=== PATIENT | male | born 1960 | race African-American/Black ===

== ENCOUNTER 2016-08-07 23:24 | Inpatient (IN) | payer OTHER ==
[~2016-08-07] VITALS: Ht 193 cm; Wt 175.3 kg
[~2016-08-07 23:24] MED LIST: 1-ME1LIQ PO; ALBU8I INH; ATOR40TA PO; BACT800T5 PO; CARV25TA PO; CHLO25TA24 PO; CO Q100C9 PO; GUAN2TAB PO; LEVO50IN PO; NITR0.4S SL; RANI150T PO; SM A81CH PO
[2016-08-07] MEDS ORDERED: SODIUM CHLORIDE 0.9% FLUSH 5 ML FLUSH IVF PRN (23:30)
[2016-08-07] MEDS ORDERED: MORPHINE SULFATE 4 MG/ML INJ IV PUSH ONE (23:30)
[2016-08-07] MEDS: METOPROLOL TARTRATE 5 MG/5 ML VIAL IVS SCH ×3 (23:30→23:40)
[2016-08-07] MEDS ORDERED: ONDANSETRON HCL 4 MG/2 ML VIAL ONE (23:34)
[2016-08-07 23:36] VITALS: BP 125/78; PULSE 62; RESP 25; TEMP 98.3; O2SAT 95
[2016-08-07 23:40] VITALS: BP 111/60; PULSE 57; RESP 18; O2SAT 95; O2SAT 96
[2016-08-07] MEDS: NITROGLYCERIN 0.4 MG SL 25 TABS/BTL SL SCH ×2 (23:40→23:49)
--- NOTE | 2016-08-07 23:59 | RADRPT ---
EXAM DATE/TIME: 08/07/2016 21:54 [place] COMPARISON: No previous studies available for comparison. INDICATIONS : Shortness of breath. MEDICAL HISTORY : None. SURGICAL HISTORY : None. ENCOUNTER: Initial ACUITY: 1 day PAIN SCORE: 0/10 LOCATION: Bilateral chest FINDINGS: Cardiomegaly. Clear lungs. Osseous structures are intact. CONCLUSION: No acute disease. Daron Coulter MD on August 07, 2016 at 23:57 Board Certified Radiologist. This report was verified electronically.
[2016-08-08] VITALS (15 sets, daily range): BP systolic 113–141; BP diastolic 51–81; PULSE 50–70; RESP 16–26; TEMP 97.2–97.7; O2SAT 93–100
[2016-08-08] MEDS ORDERED: ONDANSETRON HCL 4 MG/2 ML VIAL IV PUSH ONE
[2016-08-08 00:01] LABS: AUTOMATED NEUTROPHIL # 6.4 TH/MM3 (1.8-7.7); BASOPHIL % 0.1 % (0.0-2.0); EOSINOPHIL # 0.2 TH/MM3 (0-0.4); EOSINOPHIL % 2.8 % (0.0-4.0); HEMATOCRIT 33.1 % (39.0-51.0); HEMO FLAGS DIFF FINAL; LYMPH % 10.6 % (9.0-44.0); LYMPHOCYTE # 0.8 TH/MM3 (1.0-4.8); MEAN CELL VOLUME 90.8 FL (80.0-100.0); MEAN CORPUSCULAR HEMOGLOBIN 30.9 PG (27.0-34.0); MONO % 4.8 % (0.0-8.0); NEUT % 81.7 % (16.0-70.0); PLATELET COUNT 178 TH/MM3 (150-450); RED BLOOD COUNT 3.64 MIL/MM3 (4.50-5.90); RED CELL DISTRIBUTION WIDTH 15.6 % (11.6-17.2); WHITE BLOOD COUNT 7.9 TH/MM3 (4.0-11.0)
[2016-08-08] MEDS: NITROGLYCERIN 0.4 MG SL 25 TABS/BTL SL SCH (00:09)
[2016-08-08 00:12] LABS: APTT (PATIENT) 24.5 SEC (24.3-30.1); PROTHROMBIN TIME - PATIENT 10.8 SEC (9.8-11.6)
[2016-08-08] MEDS ORDERED: PROMETHAZINE INJ 25 MG/ML VIAL IM ONE (00:15)
[2016-08-08 00:20] LABS: ALT (GPT) 64 U/L (12-78); ANION GAP 10 MEQ/L (5-15); AST (GOT) 32 U/L (15-37); BICARBONATE 22.5 MEQ/L (21.0-32.0); BLOOD UREA NITROGEN 37 MG/DL (7-18); CHLORIDE 109 MEQ/L (98-107); GLOMERULAR FILTRATION RATE 32 ML/MIN (>89); MAGNESIUM 2.1 MG/DL (1.5-2.5); POTASSIUM 4.1 MEQ/L (3.5-5.1); SODIUM (NA) 141 MEQ/L (136-145)
[2016-08-08 00:24] LABS: ALKALINE PHOSPHATASE 71 U/L (45-117); CREATINE KINASE 307 U/L (39-308); TOTAL BILIRUBIN ADULT 0.2 MG/DL (0.2-1.0)
[2016-08-08 00:36] LABS: CKMB 1.4 NG/ML (0.5-3.6)
[2016-08-08] MEDS ORDERED: HYDROmorphone HCL PF 1 MG/ML VIAL IV PUSH ONE (01:00)
[2016-08-08] MEDS ORDERED: SODIUM CHLORIDE 0.9% FLUSH 5 ML FLUSH FLUSH PRN (01:15)
[2016-08-08] MEDS ORDERED: NALOXONE HCL 0.4 MG/ML AMP IV PRN (01:15)
--- NOTE | 2016-08-08 01:39 | PD ---
HPI Chief Complaint: Chest Pain Time Seen by Provider: 23:26 Travel History International Travel<30 days: No Contact w/Intl Traveler<30days: No Traveled to known affect area: No History of Present Illness HPI 55-year-old male arrives complaining of lightheaded dizziness along with nausea. He dry heaved once. He said no fever. He reports shortness of breath. Orthopnea is reported. Dyspnea on exertion is reported. He denies chest pain or any variant of chest discomfort. Patient has a history of hypertension chronic kidney disease hypothyroidism smoking and CHF. He reports compliance with all his medications including diuretic however cannot recall the names of any of his meds. His notes that he was diaphoresis prior to arrival. Symptoms started this at rest somewhat suddenly 2 hours ago. He has taken aspirin within the last 7 days. He denies a history of coronary artery disease. He also complains of low back pain and acute on chronic. No recent injury. No change in bowel bladder habits. It's worse from sitting upright on the thin mattress in the ER. PFSH Past Medical History Congestive Heart Failure: Yes Hypertension: Yes Thyroid Disease: Yes (HYPO) Tetanus Vaccination: > 5 Years Influenza Vaccination: No Past Surgical History Surgical History: No Previous Surgery Other Surgery: Yes (CORNEA TRANSPLANT) Social History Alcohol Use: Yes (OCC) Tobacco Use: No Substance Use: No (WEED) Allergies-Medications (Allergen,Severity, Reaction): Coded Allergies: Topiramate (Verified Allergy, Intermediate, Hives, 08/07/16) Uncoded Allergies: phentermine (Allergy, Intermediate, Hives, 03/08/15) Reported Meds & Prescriptions Reported Meds & Active Scripts Active Bactrim DS (Sulfamethoxazole-Trimethoprim DS) 1 Tab Tab 1 Tab PO BID Nitrostat (Nitroglycerin) 0.4 Mg Subl 0.4 Mg SL PRN 1 TAB SL EVERY 5 MINS X 3 PRN CHEST PAIN [place] (Chlorthalidone) 25 Mg Tab 1 Tab PO DAILYAC Carvedilol 25 mg (Carvedilol) 25 Mg Tab 1 Tab PO BID Levothyroxine 200 mcg (Levothyroxine Sodium) 200 Mcg Tab 1 Tab PO DAILY Take 1 hour before food including coffee Ranitidine 150 mg (Ranitidine HCl) 150 Mg Tab 1 Tab PO DAILY Amlodipine Besylate 10 mg (Amlodipine Besylate) 10 Mg Tab 1 Tab PO DAILY Ventolin Hfa (Albuterol Sulfate) 8 Gm Aero 1 Puff INH QID dispense generic salbutemol Co Q 10 (Coenzyme Q10) 100 Mg Cap 1 Cap PO DAILY take with food Atorvastatin 40 mg (Atorvastatin Calcium) 40 Mg Tab 1 Tab PO DAILY Reported Guanfacine Hcl (Guanfacine HCl) 2 Mg Tab 2 Mg PO HS Aspirin 81 Mg Tab 81 Mg PO DAILY Review of Systems Except as stated in HPI: all other systems reviewed are Neg Physical Exam Narrative GENERAL: 55-year-old male pleasant, no acute distress, BMI 47 SKIN: Warm and dry. HEAD: Atraumatic. Normocephalic. EYES: Pupils equal and round. No scleral icterus. No injection or drainage. ENT: No nasal bleeding or discharge. Mucous membranes pink and moist. NECK: Trachea midline. No JVD. CARDIOVASCULAR: Regular rate and rhythm. No murmur appreciated. RESPIRATORY: No accessory muscle use. Clear to auscultation. Breath sounds equal bilaterally. GASTROINTESTINAL: Abdomen soft, non-tender, nondistended. Hepatic and splenic margins not palpable. MUSCULOSKELETAL: No obvious deformities. No clubbing. No cyanosis. No edema. NEUROLOGICAL: Awake and alert. No obvious cranial nerve deficits. Motor grossly within normal limits. Normal speech. PSYCHIATRIC: Appropriate mood and affect; insight and judgment normal. Data Data Last Documented VS Vital Signs Date Time Temp Pulse Resp B/P Pulse Ox O2 Delivery O2 Flow Rate FiO2 08/08/16 00:09 50 18 115/63 93 Nasal Cannula 6 08/07/16 23:36 98.3 Orders Electrocardiogram (08/07/16 23:26) B-Type Natriuretic Peptide (08/07/16 23:26) Ckmb (Isoenzyme) Profile (08/07/16 23:26) Complete Blood Count With Diff (08/07/16 23:26) Comprehensive Metabolic Panel (08/07/16 23:26) Magnesium (Mg) (08/07/16 23:26) Prothrombin Time / Inr (Pt) (08/07/16 23:26) Act Partial Throm Time (Ptt) (08/07/16 23:26) Troponin I (08/07/16 23:26) Lipase (08/07/16 23:26) Chest, Single Ap (08/07/16 23:26) Ecg Monitoring (08/07/16 23:26) Bilateral Bp Monitoring (08/07/16 23:26) Iv Access Insert/Monitor (08/07/16 23:26) Oximetry (08/07/16 23:26) Oxygen Administration (08/07/16 23:26) Morphine Inj (Morphine Inj) (08/07/16 23:30) Sodium Chloride 0.9% Flush (Ns Flush) (08/07/16 23:30) Nitroglycerin Sl (Nitrostat Sl) (08/07/16 23:30) Metoprolol Tartrate Inj (Lopressor Inj) (08/07/16 23:30) Ondansetron Inj (Zofran Inj) (08/07/16 23:34) Ondansetron Inj (Zofran Inj) (08/08/16 00:00) Promethazine Inj (Phenergan Inj) (08/08/16 00:15) CKMB (08/07/16 23:30) CKMB% (08/07/16 23:30) Admit Order (Ed Use Only) (08/08/16 00:53) Labs Laboratory Tests Test 08/07/16 23:30 White Blood Count 7.9 TH/MM3 Red Blood Count 3.64 MIL/MM3 Hemoglobin 11.2 GM/DL Hematocrit 33.1 % Mean Corpuscular Volume 90.8 FL Mean Corpuscular Hemoglobin 30.9 PG Mean Corpuscular Hemoglobin 34.0 % Concent Red Cell Distribution Width 15.6 % Platelet Count 178 TH/MM3 Mean Platelet Volume 10.4 FL Neutrophils (%) (Auto) 81.7 % Lymphocytes (%) (Auto) 10.6 % Monocytes (%) (Auto) 4.8 % Eosinophils (%) (Auto) 2.8 % Basophils (%) (Auto) 0.1 % Neutrophils # (Auto) 6.4 TH/MM3 Lymphocytes # (Auto) 0.8 TH/MM3 Monocytes # (Auto) 0.4 TH/MM3 Eosinophils # (Auto) 0.2 TH/MM3 Basophils # (Auto) 0.0 TH/MM3 CBC Comment DIFF FINAL Differential Comment Prothrombin Time 10.8 SEC Prothromb Time International 1.0 RATIO Ratio Activated Partial 24.5 SEC Thromboplast Time Sodium Level 141 MEQ/L Potassium Level 4.1 MEQ/L Chloride Level 109 MEQ/L Carbon Dioxide Level 22.5 MEQ/L Anion Gap 10 MEQ/L Blood Urea Nitrogen 37 MG/DL Creatinine 2.55 MG/DL Estimat Glomerular Filtration 32 ML/MIN Rate Random Glucose 128 MG/DL Calcium Level 8.4 MG/DL Magnesium Level 2.1 MG/DL Total Bilirubin 0.2 MG/DL Aspartate Amino Transf 32 U/L (AST/SGOT) Alanine Aminotransferase 64 U/L (ALT/SGPT) Alkaline Phosphatase 71 U/L Total Creatine Kinase 307 U/L Creatine Kinase MB 1.4 NG/ML Troponin I 0.15 NG/ML B-Type Natriuretic Peptide 67 PG/ML Total Protein 7.7 GM/DL Albumin 3.4 GM/DL Lipase 97 U/L MDM Medical Decision Making Medical Screen Exam Complete: Yes Emergency Medical Condition: Yes Medical Record Reviewed: Yes Differential Diagnosis NSTEMI, unstable angina, coronary vasospasm, PE, PTX, aortic dissection, pericarditis, myocarditis, endocarditis, PNA, esophageal disease, aneurysm, musculoskeletal etiologies, anxiety, cocaine/sympathomimetic abuse Narrative Course EKG demonstrates a sinus rhythm with a moderate T-wave changes in the precordial leads and T-wave inversions in the inferior leads of indeterminate etiology however ischemic injury pattern is considered, similar morphology has been loaded to the EMR Last 24 hours Impressions Chest X-Ray 08/07/16 2308 Signed Impressions: Service Date/Time: Sunday, August 07, 2016 21:54 - CONCLUSION: No acute disease. Daron Coulter MD CBC & BMP Diagram 08/07/16 23:30 Tn 0.15 LFTs normal BNP 67 Lipase 97 INR 1.0 Patient will be admitted for serial enzymes. He has complained of nausea and dizziness throughout ER stay. His blood pressure has dipped to about 95 systolic. Upon reassessment just prior to admission the patient's only complaint is acute or chronic low back pain. The patient has received Phenergan for persistent nausea. We'll provide additional pain medication. We' ll provide the patient with a hospital bed as it seems his low back pain is simply from sitting upright with his 375 pound frame on the thin mattress. Case discussed with Dr Ng. Diagnosis Primary Impression: Restrictive lung disease Additional Impressions: Low back pain Qualified Code: M54.5 - Chronic midline low back pain without sciatica BMI 45.0-49.9, adult Dyspnea on exertion Elevated troponin I level CKD (chronic kidney disease) Qualified Code: N18.3 - CKD (chronic kidney disease), stage 3 (moderate) Admitting Information Admitting Physician Requests: Austen Grace MD Aug 08, 2016 01:39
[2016-08-08] MEDS ORDERED: RANI150T PO (02:41)
[2016-08-08] MEDS ORDERED: LEVO200T4 PO (02:41)
[2016-08-08] MEDS ORDERED: CARV25TA PO (02:41)
[2016-08-08] MEDS ORDERED: VENTAER INH (02:41)
[2016-08-08] MEDS ORDERED: ASPI81CH CHEW (02:41)
[2016-08-08] MEDS ORDERED: LIPI40TA PO (02:41)
[2016-08-08] MEDS: SODIUM CHLORIDE 0.9% FLUSH 5 ML FLUSH FLUSH SCH ×2 (09:04→21:07)
[2016-08-08] MEDS ORDERED: MORPHINE SULFATE 4 MG/ML INJ IV PRN (11:15)
[2016-08-08] MEDS ORDERED: NITROGLYCERIN 0.4 MG SL 25 TABS/BTL SL PRN (11:15)
[2016-08-08] MEDS ORDERED: ACETAMINOPHEN 500 MG CPLT PO PRN (11:15)
[2016-08-08] MEDS ORDERED: ONDANSETRON HCL 4 MG/2 ML VIAL IV PUSH PRN (11:15)
[2016-08-08] MEDS ORDERED: ALPRAZolam 0.25 MG TAB PO PRN (11:15)
[2016-08-08] MEDS ORDERED: ASPIRIN EC 325 MG TABEC PO ONE (11:15)
[2016-08-08] MEDS ORDERED: ACETAMINOPHEN/HYDROcodone 325 MG/7.5 MG TAB PO PRN (11:15)
--- NOTE | 2016-08-08 12:39 | HHI.HP ---
HPI Service [facility] Hospitalists Primary Care Physician Non-Staff Admission Diagnosis Tn 0.15, Dizziness, Acute on Chronic Low Back Pain, N/V Chief Complaint: Chest pain Travel History International Travel<30 Days: No Contact w/Intl Traveler <30 Da: No Traveled to Known Affected Are: No History of Present Illness Mr. Adame is a pleasant 55 y/o AAM with HTN, hyperlipidemia, untreated DARINEL, grade 2 diastolic dysfunction, tobacco use, morbid obesity and CKD. Pt states that yesterday evening he started having dizziness, chest pain, worsening SOB from baseline diaphoresis and nausea. He states that he has had similar symptoms in the past but this seemed to be worse. 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 His brought him to the ER for further evaluation. He states that he was given Nitro and Morphine in the ER and did have some relief of the dizziness and chest discomfort. Pt reports that the dizziness and nausea has improved. Denies any fevers/chills, abdominal pain, palpitations, headache or weakness. He did complain of fatigue when he was having symptoms. Pt reports chronic shortness of breath with exertion and orthopnea. Dyspnea on exertion is reported. He denies chest pain or any variant of chest discomfort. Patient has a history of hypertensive chronic kidney disease and previously followed with a organizational development specialist but hasn't been seen in a while. Outpt labs from March 2016 noted Cr 1.84. He also was recently started on Chlorthalidone. He reports compliance with all his medications including. He denies a history of coronary artery disease. Pt states that his last cardiac cath was around 2011 and was negative per the pt. He was seen by Dr. Ybarra in 05/2016 and had a Lexiscan performed which indicated some possible ischemia but difficult to interpret due to body habitus. He was also noted to have grade 2 diastolic dysfunction on 2D echo but stable EF at 55-60%. He also complains of low back pain which is a chronic issue. No change in bowel bladder habits. Review of Systems Constitutional: COMPLAINS OF: Dizziness, DENIES: Fever, Chills Eyes: DENIES: Vision loss Ears, nose, mouth, throat: DENIES: Hearing loss Respiratory: COMPLAINS OF: Apneas, Shortness of breath, DENIES: Cough Cardiovascular: COMPLAINS OF: Chest pain, Dyspnea on Exertion Gastrointestinal: COMPLAINS OF: Nausea, DENIES: Abdominal pain, Constipation, Diarrhea, Vomiting Genitourinary: DENIES: Dysuria, Nocturia Musculoskeletal: COMPLAINS OF: Back pain (chronic) Integumentary: DENIES: Rash Hematologic/lymphatic: DENIES: Bruising Neurologic: DENIES: Headache, Localized weakness Psychiatric: DENIES: Confusion Past Family Social History Past Medical History HTN Hyperlipidemia Morbid Obesity DARINEL, not on CPAP Hypertensive CKD Grade 2 diastolic dysfunction GERD Hypothyroidism 2D echo (05/15/16) - LV mildly dilated and mild LVH - EF 55-60% - Grade 2 diastolic dysfunction - LA mildly dilated - Mild mitral regurg - Mild aortic regurg - Mild tricuspid regurg - Estimated PA peak pressure 35mmHg Past Surgical History Corneal transplant Arthroscopic knee surgery Reported Medications Chlorthalidone 25 Mg PO DAILY Ventolin Hfa 18 GM Inh 90 Mcg/Act Aer 1 Puff INH Q4H PRN Lipitor 40 Mg PO HS Aspirin 81 Mg CHEW DAILY Carvedilol 25 Mg PO BID Levothyroxine 200 Mcg PO DAILY Ranitidine 150 Mg PO DAILY Allergies: Coded Allergies: Topiramate (Verified Allergy, Intermediate, Hives, 08/07/16) Uncoded Allergies: phentermine (Allergy, Intermediate, Hives, 03/08/15) Family History Noncontributory Social History (+)Tobacco use, 3-4 cigarettes per week for the last 30+ years Denies any regular alcohol use Hx of marijuana use, none for the last 4 months. Physical Exam Vital Signs Vital Signs Date Time Temp Pulse Resp B/P Pulse Ox O2 Delivery O2 Flow Rate FiO2 08/08/16 12:00 59 18 129/58 94 Room Air 21 08/08/16 11:29 100 21 08/08/16 11:00 66 20 141/66 96 Nasal Cannula 4 08/08/16 10:00 66 18 141/66 99 Nasal Cannula 4 08/08/16 09:00 66 17 114/60 95 Nasal Cannula 4 08/08/16 08:00 64 16 117/51 96 Nasal Cannula 4 08/08/16 07:30 Nasal Cannula 08/08/16 07:00 64 18 113/64 96 Nasal Cannula 4 08/08/16 06:00 64 18 136/64 96 Nasal Cannula 4 08/08/16 00:09 50 18 115/63 93 Nasal Cannula 6 08/07/16 23:40 57 18 111/60 95 Nasal Cannula 6 08/07/16 23:40 59 25 95 Nasal Cannula 2 08/07/16 23:40 18 96 Nasal Cannula 6 08/07/16 23:40 93 Nasal Cannula 6 08/07/16 23:36 98.3 62 25 125/78 95 Physical Exam GENERAL: Morbidly obese male in no apparent distress. SKIN: Blisters noted on the LE bilaterally HEENT: Atraumatic. Normocephalic. No temporal or scalp tenderness. No scleral icterus. Airway patent. NECK: Trachea midline, supple, nontender. CARDIO: Regular. RESP: CTA bilaterally. No wheezes, rales, or rhonchi. ABD: +BS, soft, non-tender, nondistended. EXT: Extremities without clubbing, cyanosis, or edema. NEURO: Awake and alert. Motor and sensory grossly within normal limits. Normal speech. Laboratory Laboratory Tests Test 08/07/16 08/08/16 23:30 04:08 White Blood Count 7.9 Red Blood Count 3.64 Hemoglobin 11.2 Hematocrit 33.1 Mean Corpuscular Volume 90.8 Mean Corpuscular Hemoglobin 30.9 Mean Corpuscular Hemoglobin 34.0 Concent Red Cell Distribution Width 15.6 Platelet Count 178 Mean Platelet Volume 10.4 Neutrophils (%) (Auto) 81.7 Lymphocytes (%) (Auto) 10.6 Monocytes (%) (Auto) 4.8 Eosinophils (%) (Auto) 2.8 Basophils (%) (Auto) 0.1 Neutrophils # (Auto) 6.4 Lymphocytes # (Auto) 0.8 Monocytes # (Auto) 0.4 Eosinophils # (Auto) 0.2 Basophils # (Auto) 0.0 CBC Comment DIFF FINAL Differential Comment Prothrombin Time 10.8 Prothromb Time International 1.0 Ratio Activated Partial 24.5 Thromboplast Time Sodium Level 141 Potassium Level 4.1 Chloride Level 109 Carbon Dioxide Level 22.5 Anion Gap 10 Blood Urea Nitrogen 37 Creatinine 2.55 Estimat Glomerular Filtration 32 Rate Random Glucose 128 Calcium Level 8.4 Magnesium Level 2.1 Total Bilirubin 0.2 Aspartate Amino Transf 32 (AST/SGOT) Alanine Aminotransferase 64 (ALT/SGPT) Alkaline Phosphatase 71 Total Creatine Kinase 307 292 Creatine Kinase MB 1.4 Troponin I 0.15 0.15 B-Type Natriuretic Peptide 67 Total Protein 7.7 Albumin 3.4 Lipase 97 Result Diagram: 08/07/16232908/07/162329 Imaging Last Impressions Chest X-Ray 08/07/162325 Signed Impressions: Service Date/Time: Sunday, August 07, 2016 21:54 - CONCLUSION: No acute disease. Daron Coulter MD Septic Shock Reassessment Heart: Regular rate and rhythm Lungs: Clear Skin: Warm Peripheral Pulses: Bounding Right Radial Bounding Left Radial Bounding Right Popliteal Bounding Left Popliteal Bounding Right Dorsalis Pedis Bounding Left Dorsalis Pedis Bounding Right Posterior Tibial Bounding Left Posterior Tibial Capillary Refill: <2 seconds Assessment and Plan Problem List: (1) Chest pain Status: Acute Plan: - Pt admitted with dizziness, chest pain/pressure, exertional SOB, diaphoresis and nausea - Pt also with significant anxiety which may be playing a role in his symptoms. - He had some relief of his chest pain and pressure with Nitro and Morphine in the ER - Pt was noted to have an elevated but flat troponin of 0.15 and 0.15 but pt also noted to have an elevated creatinine about previous baseline labs. - Repeat CE and EKG are pending. - Pt has significant cardiac risk factors including, HTN, hyperlipidemia, morbid obesity, tobacco use - Pt had previous workup outpt with Lexiscan in 05/2016 which noted to have mild inferior and inferoseptal ischemia but difficult to interpret based on body habitus. - He last 2D echo in 05/2016 as noted above. - Consult Cardiology - Gentle IVF to try to improve renal function in case cardiac cath is necessary - Monitor labs - Resume BB, BP running low so will decrease dose on Coreg for now - Hold Chlorthalidone as may be contributing to increased renal function. - ASA/BB/Statin - Nitro PRN - Morphine PRN - Xanax PRN - DVT prophylaxis with SCDs (2) Acute on chronic renal insufficiency Status: Acute Plan: - Outpt labs from 03/2016 with Cr 1.84 - Hold Chlorthalidone - Gentle IVF - Monitor labs (3) Dyspnea on exertion Status: Acute Plan: - See above. (4) Dizziness Status: Acute Plan: - See above. (5) Benign hypertension Status: Chronic Plan: - Pt with longstanding hx of HTN - Outpt pt is on Coreg 25mg po BID, Chlorthalidone 25mg po daily and Norvasc 10mg po daily - Resume BB at decreased dose for now as BP has been low but will likely need to increase dose - Hold Chlorthalidone - Resume Norvasc - Vasotec PRN - Clonidine PRN (6) Hyperlipidemia Status: Chronic Plan: - Resume home meds (7) Obesity Status: Chronic (8) Hypothyroidism Status: Chronic Plan: - Resume home meds (9) DARINEL (obstructive sleep apnea) Status: Chronic Plan: - Pt has not seen a tie cutter is quite some time and does not have a CPAP - pt will need outpt followup with Pulmonary for sleep study and CPAP (10) Diastolic CHF Status: Chronic Plan: - Pt with grade 2 diastolic CHF Assessment and Plan Patient examined. Assessment and plan formulated with Patricia Rivera PA-C. I agree with the above. cp/sob/dizzyness. very anxious. obese. acute flare of sciatica worsening of ckd. gentle ivf. hold chorthalidone. cont bb/ccb. 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 yari for anxiety given. needs to have another sleep study for untreated sleep apnea. worried he is about to lose his insurance. Physician Certification 2 Midnight Certification Type: Admission for Inpatient Services Order for Inpatient Services The services are ordered in accordance with Medicare regulations or non- Medicare payer requirements, as applicable. In the case of services not specified as inpatient-only, they are appropriately provided as inpatient services in accordance with the 2-midnight benchmark. Estimated LOS (days): 3 3 days is the estimated time the patient will need to remain in the hospital, assuming treatment plan goals are met and no additional complications. Post-Hospital Plan: Not yet determined Patricia Rivera Aug 08, 2016 12:39 Frank Moon MD Aug 08, 2016 14:56
[2016-08-08] MEDS ORDERED: CHLO25TA2 PO (12:49)
[2016-08-08] MEDS ORDERED: cloNIDine HCL 0.1 MG TAB PO PRN (14:15)
[2016-08-08] MEDS ORDERED: ENALAPRILAT 1.25 MG/ML VIAL IV PUSH PRN (14:15)
--- NOTE | 2016-08-08 14:52 | MB ---
cc: GENEVIEVE MEANS DATE OF CONSULTATION: 08/08/2016 REASON FOR CONSULTATION Shortness of breath. HISTORY OF PRESENT ILLNESS This is a very nice 55-year-old gentleman with hypertension, hyperlipidemia, obstructive sleep apnea, diastolic dysfunction and chronic kidney disease. He presents to the emergency department with an episode of dizziness, shortness of breath and diaphoresis. I last saw him in the office in May 2016. At that time he had some atypical chest pain symptoms and shortness of breath. He had an echocardiogram that showed a relatively normal ejection fraction, some mild valvular heart disease and grade 2 diastolic dysfunction. A Lexiscan was performed and given his body habitus it was suboptimal. There may have been some mild inferior, inferolateral ischemia but we elected given his atypical symptoms and small distribution to manage it medically. Yesterday he did not feel quite himself. He was feeling a little dizzy, sat up at the end of the bed and was noted to be quite diaphoretic. He had to pick his up from work. When he arrived she noticed that he was sweating profusely, short of breath and dizzy. They brought him into the emergency department. Here electrocardiogram shows sinus rhythm, no significant ST changes. Symptomatically he is feeling a little bit better now. He has some upper respiratory tract infection and stuffy nose. He has not noticed any significant weight gain or chest pain. He does have hypertensive chronic kidney disease and has been on chlorthalidone with worsening creatinine from 1.8 back in March 2016 up to 2.55 now. We are consulted given his intermediate troponin and shortness of breath. PAST MEDICAL HISTORY 1. Hypertension. 2. Hyperlipidemia. 3. Morbid obesity. 4. Obstructive sleep apnea. 5. Hypertensive chronic kidney disease. 6. Mild valvular heart disease. 7. Grade 2 diastolic dysfunction. ALLERGIES TOPIRAMATE. MEDICATIONS See med reconciliation. SOCIAL HISTORY Still smokes 3-4 cigarettes a week for the past 30 years. Denies regular alcohol use. REVIEW OF SYSTEMS A 12-point review of systems was performed and negative unless otherwise noted in the history of present illness. PHYSICAL EXAMINATION VITAL SIGNS: Heart rate 60, blood pressure 129/58 mmHg. GENERAL: Alert and oriented x3, in no acute distress. HEENT: Pupils reactive to light and accommodation. Extraocular movements are intact. NECK: No jugular venous distention. No thyromegaly. No lymphadenopathy. No carotid bruits. LUNGS: Mild end-expiratory wheeze. CARDIOVASCULAR: Regular rate and rhythm, distant heart sounds. ABDOMEN: Obese but nondistended. EXTREMITIES: No clubbing, cyanosis or edema. Good peripheral pulses. NEUROLOGIC: Cranial nerves intact. Motor and sensory grossly intact. LABORATORY DATA Sodium 141, potassium 4.1, chloride 109, BUN 37, creatinine 2.55. Troponin 0.15. BNP 67. ASSESSMENT 1. Shortness of breath. 2. Diaphoresis, dizziness. 3. Intermediate troponin. 4. Acute on chronic renal failure. PLAN The patient's echocardiogram showed normal ejection fraction, mild valvular heart disease, some diastolic dysfunction. His nuclear stress test was suboptimal given his body habitus but on the images that were available there may have been some mild inferior skin although artifact is also a strong possibility. The ejection fraction on the stress test itself had been calculated around 40%. Stress test is usually not as accurate as the echo and therefore we did not pursue that any further. His symptoms now are rather atypical, did not have any traditional chest pain. His troponin is intermediate to mildly elevated likely due to his renal insufficiency. His BNP is not elevated which would strongly argue against congestive heart failure as an etiology to his shortness of breath. He does have some mild wheeze which is more suggestive of pulmonary etiology. I have encouraged him to become more compliant with therapies for his obstructive sleep apnea with CPAP. At this point will get a repeat 2-D echocardiogram just to confirm his ejection fraction is normal. We may also be able to assess the pulmonary pressures given his untreated sleep apnea. Given his renal insufficiency I do not feel strongly about proceeding with cardiac catheterization for the troponin since we have a reasonable explanation and his presentation is rather atypical. Any invasive strategy with contrast is likely going to put him on dialysis due to nephrotoxicity, at least temporarily. If the echo is rather unremarkable and symptomatically he is feeling better, we can probably discharge him tomorrow with outpatient follow-up. From a blood pressure perspective obviously I would avoid diuretic or LESLIE and ARB due to his current kidney function. MD MARTIN Simpson/BRETT /2:01 PM /2:28 PM
[2016-08-08] MEDS: SODIUM CHLOR 0.9% 1000 ML INJ 1,000 ML IV SCH (15:05)
--- NOTE | 2016-08-08 16:54 | EKG ---
Date Performed: 08/08/2016 Time Performed: 11:38:37 PTAGE: 55 years EKG: Sinus rhythm NONSPECIFIC T-WAVE ABNORMALITY BORDERLINE ECG NO SIGNIFICANT CHANGE FROM PRIOR ELECTROCARDIOGRAM. PREVIOUS TRACING : 08/08/2016 05.35 DOCTOR: Gustavo Hicks Interpretating Date/Time 08/08/2016 16:53:19
--- NOTE | 2016-08-08 18:45 | EKG ---
Date Performed: 08/08/2016 Time Performed: 05:35:25 PTAGE: 55 years EKG: Sinus rhythm NONSPECIFIC T-WAVE ABNORMALITY BORDERLINE ECG Compared to the PREVIOUS TRACING from 08/07/16, no significant change DOCTOR: Jose Baez Interpretating Date/Time 08/08/2016 18:43:39
[2016-08-08] MEDS: CARVEDILOL 3.125 MG TAB PO SCH (21:07)
[2016-08-08] MEDS: ATORVASTATIN 40 MG TAB PO SCH (21:08)
--- NOTE | 2016-08-08 22:02 | EKG ---
Date Performed: 08/07/2016 Time Performed: 23:20:04 PTAGE: 55 years EKG: SINUS BRADYCARDIA MODERATE T-WAVE ABNORMALITY, CONSIDER INFERIOR ISCHEMIA ABNORMAL ECG NO PREVIOUS TRACING DOCTOR: Jose Baez Interpretating Date/Time 08/08/2016 22:02:10
[2016-08-09] VITALS (10 sets, daily range): BP systolic 131–177; BP diastolic 69–100; PULSE 56–66; RESP 20; TEMP 96.4–98.1; O2SAT 92–97
[2016-08-09] MEDS: SODIUM CHLOR 0.9% 1000 ML INJ 1,000 ML IV SCH ×2 (04:08→15:55)
[2016-08-09] MEDS: LEVOTHYROXINE SODIUM 200 MCG TAB PO SCH (06:01)
[2016-08-09 06:11] LABS: AUTOMATED NEUTROPHIL # 4.5 TH/MM3 (1.8-7.7); BASOPHIL # 0.1 TH/MM3 (0-0.2); BASOPHIL % 0.7 % (0.0-2.0); EOSINOPHIL # 0.3 TH/MM3 (0-0.4); EOSINOPHIL % 4.6 % (0.0-4.0); HEMATOCRIT 32.2 % (39.0-51.0); HEMO FLAGS DIFF FINAL; LYMPH % 19.6 % (9.0-44.0); LYMPHOCYTE # 1.4 TH/MM3 (1.0-4.8); MEAN CELL VOLUME 92.7 FL (80.0-100.0); MEAN CORPUSCULAR HEMOGLOBIN 30.1 PG (27.0-34.0); MEAN CORPUSCULAR HGB CONC 32.4 % (32.0-36.0); MONO % 13.4 % (0.0-8.0); NEUT % 61.7 % (16.0-70.0); PLATELET COUNT 126 TH/MM3 (150-450); RED BLOOD COUNT 3.47 MIL/MM3 (4.50-5.90); RED CELL DISTRIBUTION WIDTH 16.1 % (11.6-17.2); WHITE BLOOD COUNT 7.3 TH/MM3 (4.0-11.0)
[2016-08-09 06:51] LABS: BICARBONATE 23.8 MEQ/L (21.0-32.0); HDL CHOLESTEROL 38.5 MG/DL (40.0-60.0); POTASSIUM 4.4 MEQ/L (3.5-5.1)
--- NOTE | 2016-08-09 08:16 | PD.CARD.PN ---
Subjective Subjective Remarks no CV complaints (Conrado Brock) Objective Vital Signs / I&O Vital Signs Date Time Temp Pulse Resp B/P Pulse Ox O2 Delivery O2 Flow Rate FiO2 08/09/16 05:08 98.1 59 08/09/16 00:00 97.0 63 20 131/69 94 08/08/16 20:00 Room Air 08/08/16 20:00 62 08/08/16 20:00 97.7 63 20 130/81 94 08/08/16 19:26 66 08/08/16 16:10 97.2 66 20 128/76 98 08/08/16 15:40 95 08/08/16 15:00 Room Air 4 21 08/08/16 15:00 62 26 139/76 98 Room Air 21 08/08/16 14:00 64 25 132/80 96 Room Air 21 08/08/16 13:00 70 16 126/68 95 Room Air 21 08/08/16 12:00 59 18 129/58 94 Room Air 21 08/08/16 11:29 100 21 08/08/16 11:00 66 20 141/66 96 Nasal Cannula 4 08/08/16 10:00 66 18 141/66 99 Nasal Cannula 4 08/08/16 09:00 66 17 114/60 95 Nasal Cannula 4 I/O 08/08/16 08/08/16 08/08/16 08/09/16 08/09/16 08/09/16 06:59 14:59 22:59 06:59 14:59 22:59 Intake Total 480 ml Balance 480 ml Intake Oral 480 ml # Voids 2 # Bowel Movements 1 Physical Exam GENERAL: Well-nourished, well-developed patient in no apparent distress. NECK: No JVD. No carotid bruit. CARDIOVASCULAR: Regular rate and rhythm. S1/S2 no murmur, rub, or gallop. RESPIRATORY: No accessory muscle use. Clear to auscultation. Breath sounds equal bilaterally. GASTROINTESTINAL: Abdomen soft, non-tender, nondistended. MUSCULOSKELETAL: Extremities without clubbing, cyanosis, or edema. Laboratory Laboratory Tests Test 08/08/16 08/09/16 11:30 05:09 Total Creatine Kinase 278 U/L Troponin I 0.13 NG/ML White Blood Count 7.3 TH/MM3 Red Blood Count 3.47 MIL/MM3 Hemoglobin 10.4 GM/DL Hematocrit 32.2 % Mean Corpuscular Volume 92.7 FL Mean Corpuscular Hemoglobin 30.1 PG Mean Corpuscular Hemoglobin 32.4 % Concent Red Cell Distribution Width 16.1 % Platelet Count 126 TH/MM3 Mean Platelet Volume 9.9 FL Neutrophils (%) (Auto) 61.7 % Lymphocytes (%) (Auto) 19.6 % Monocytes (%) (Auto) 13.4 % Eosinophils (%) (Auto) 4.6 % Basophils (%) (Auto) 0.7 % Neutrophils # (Auto) 4.5 TH/MM3 Lymphocytes # (Auto) 1.4 TH/MM3 Monocytes # (Auto) 1.0 TH/MM3 Eosinophils # (Auto) 0.3 TH/MM3 Basophils # (Auto) 0.1 TH/MM3 CBC Comment DIFF FINAL Differential Comment Sodium Level 139 MEQ/L Potassium Level 4.4 MEQ/L Chloride Level 108 MEQ/L Carbon Dioxide Level 23.8 MEQ/L Anion Gap 7 MEQ/L Blood Urea Nitrogen 48 MG/DL Creatinine 3.39 MG/DL Estimat Glomerular Filtration 23 ML/MIN Rate Random Glucose 93 MG/DL Calcium Level 7.9 MG/DL Triglycerides Level 91 MG/DL Cholesterol Level 133 MG/DL LDL Cholesterol 76 MG/DL HDL Cholesterol 38.5 MG/DL Cholesterol/HDL Ratio 3.45 RATIO (Conrado Brock) Assessment and Plan Problem List: (1) Chest pain with high risk for cardiac etiology (2) Diastolic CHF (3) Hyperlipidemia Assessment and Plan Chest pain - none further, we will await the result of his 2D echo and go from there (Conrado Brock) Assessment and Plan troponins flat Cr worsening no plans for LHC given renal insufficiency. echo pending may need nephrology input (Ryan Ybarra MD) Conrado Brock Aug 09, 2016 08:16 Ryan Ybarra MD Aug 09, 2016 11:00
[2016-08-09] MEDS: ASPIRIN EC 325 MG TABEC PO SCH (08:33)
[2016-08-09] MEDS: CARVEDILOL 3.125 MG TAB PO SCH ×2 (08:34→21:54)
[2016-08-09] MEDS: SODIUM CHLORIDE 0.9% FLUSH 5 ML FLUSH FLUSH SCH ×2 (08:34→21:56)
[2016-08-09] MEDS: PANTOPRAZOLE SOD 40 MG DELAYED RELEASE TAB PO SCH (08:34)
--- NOTE | 2016-08-09 10:48 | HHI.PR ---
Subjective Remarks denies dizziness or cp today. urinating. Objective Vitals heent neg heart reg lung diminished air entry abd s/nt ext superficial denuded skin on rle..not hot or erythematous. Vital Signs Date Time Temp Pulse Resp B/P Pulse Ox O2 Delivery O2 Flow Rate FiO2 08/09/16 09:58 156/92 08/09/16 08:37 Room Air 08/09/16 08:37 66 08/09/16 08:00 97.3 63 20 177/100 92 08/09/16 05:08 98.1 59 08/09/16 00:00 97.0 63 20 131/69 94 08/08/16 20:00 Room Air 08/08/16 20:00 62 08/08/16 20:00 97.7 63 20 130/81 94 08/08/16 19:26 66 08/08/16 16:10 97.2 66 20 128/76 98 08/08/16 15:40 95 08/08/16 15:00 Room Air 4 21 08/08/16 15:00 62 26 139/76 98 Room Air 21 08/08/16 14:00 64 25 132/80 96 Room Air 21 08/08/16 13:00 70 16 126/68 95 Room Air 21 08/08/16 12:00 59 18 129/58 94 Room Air 21 08/08/16 11:29 100 21 08/08/16 11:00 66 20 141/66 96 Nasal Cannula 4 08/08/16 08/08/16 08/09/16 15:00 23:00 07:00 Intake Total 480 ml Balance 480 ml Intake Oral 480 ml # Voids 2 # Bowel Movements 1 Result Diagram: 08/09/16 0509 08/09/16 0509 Imaging Last Impressions Chest X-Ray 08/07/16 5480 Signed Impressions: Service Date/Time: Sunday, August 07, 2016 21:54 - CONCLUSION: No acute disease. Daron Coulter MD A/P Problem List: (1) Chest pain Status: Acute Plan: - Pt admitted with dizziness, chest pain/pressure, exertional SOB, diaphoresis and nausea - Pt also with significant anxiety which may be playing a role in his symptoms. - He had some relief of his chest pain and pressure with Nitro and Morphine in the ER - Pt was noted to have an elevated but flat troponin of 0.15 and 0.15 but pt also noted to have an elevated creatinine about previous baseline labs. - Pt has significant cardiac risk factors including, HTN, hyperlipidemia, morbid obesity, tobacco use - Pt had previous workup outpt with Lexiscan in 05/2016 which noted to have mild inferior and inferoseptal ischemia but difficult to interpret based on body habitus. - He last 2D echo in 05/2016 as noted above. - seen by cardiology. repeat echo pending. lhc would be problematic given his renal function. (2) Acute on chronic renal insufficiency Status: Acute Plan: - Pt with worsening lorie. cr 3.3 today - Outpt labs from 03/2016 with Cr 1.84 - Hold Chlorthalidone -He was using bactrim on 2 separate occasions before admission for "cellulitis" rle....So his lorie could be related to the bactrim. Also we are aware of his variant collecting system anatomy on left and hx bph. discussed with Renal. u/s kidney. u/a. urine na, eos . cont ivf. (3) Dyspnea on exertion Status: Acute Plan: - See above. (4) Dizziness Status: Acute Plan: - See above. (5) Benign hypertension Status: Chronic Plan: - Pt with longstanding hx of HTN - Outpt pt is on Coreg 25mg po BID, Chlorthalidone 25mg po daily and Norvasc 10mg po daily - Resume BB at decreased dose for now as BP has been low but will likely need to increase dose - Hold Chlorthalidone - Resume Norvasc - Vasotec PRN - Clonidine PRN (6) Hyperlipidemia Status: Chronic Plan: - Resume home meds (7) Obesity Status: Chronic (8) Hypothyroidism Status: Chronic Plan: - Resume home meds (9) DARINEL (obstructive sleep apnea) Status: Chronic Plan: - Pt has not seen a implementation analyst is quite some time and does not have a CPAP - pt will need outpt followup with Pulmonary for sleep study and CPAP (10) Diastolic CHF Status: Chronic Plan: - Pt with grade 2 diastolic CHF Frank Moon MD Aug 09, 2016 10:48
--- NOTE | 2016-08-09 11:40 | PD.CONS ---
[facility] Service Nephrology Consult Requested By Reason for Consult Acute Renal Failure Primary Care Physician Non-Staff History of Present Illness This is a morbidly obese AAM pt who presented for shortness of breath. PMH of HTN, GERD, DARINEL not on CPAP, CHF, and hypothyroidism. He is a smoker. Labs on arrival with creatinine 2.55 on 08/07, which increased to 3.39 today. in March his creatinine was 1.84, GFR 32, consistent with CKD 3. Potassium is normal today. He was on Bactrim x 7 days 1-2 months ago, was given another course of Bactrim 2 days prior to admission. Hd is no longer on this medication. He is on NS @ 84 cc/hr. BP is stable. We were consulted for renal management. He reportedly has a renal abnormality that required urology evaluation, he has no difficulty voiding, and is non oliguric. He denies use of NSAIDs prior to admission, denies hematuria, dysuria, flank pain, fever/chills. (Jacqui Nguyen) Review of Systems Constitutional: COMPLAINS OF: Fatigue, DENIES: Change in appetite Eyes: DENIES: Blurred vision Respiratory: COMPLAINS OF: Shortness of breath Cardiovascular: DENIES: Chest pain Neurologic: DENIES: Seizures (Jacqui Nguyen) Past Family Social History Allergies: Coded Allergies: Topiramate (Verified Allergy, Intermediate, Hives, 08/07/16) Uncoded Allergies: phentermine (Allergy, Intermediate, Hives, 03/08/15) Past Medical History CKD, creatinine 1.84 GFR 32, consistent with CKD 3 as of March 2016 HTN Hyperlipidemia Morbid Obesity DARINEL, not on CPAP Grade 2 diastolic dysfunction GERD Hypothyroidism Past Surgical History cardiac cath 3 yrs ago Reported Medications Bactrim DS (Sulfamethoxazole-Trimethoprim DS) 1 Tab Tab 1 Tab PO BID Nitrostat (Nitroglycerin) 0.4 Mg Subl 0.4 Mg SL PRN 1 TAB SL EVERY 5 MINS X 3 PRN CHEST PAIN [place] (Chlorthalidone) 25 Mg Tab 1 Tab PO DAILYAC Carvedilol 25 mg (Carvedilol) 25 Mg Tab 1 Tab PO BID Levothyroxine 200 mcg (Levothyroxine Sodium) 200 Mcg Tab 1 Tab PO DAILY Take 1 hour before food including coffee Ranitidine 150 mg (Ranitidine HCl) 150 Mg Tab 1 Tab PO DAILY Amlodipine Besylate 10 mg (Amlodipine Besylate) 10 Mg Tab 1 Tab PO DAILY Ventolin Hfa (Albuterol Sulfate) 8 Gm Aero 1 Puff INH QID dispense generic salbutemol Co Q 10 (Coenzyme Q10) 100 Mg Cap 1 Cap PO DAILY take with food Atorvastatin 40 mg (Atorvastatin Calcium) 40 Mg Tab 1 Tab PO DAILY Reported Guanfacine Hcl (Guanfacine HCl) 2 Mg Tab 2 Mg PO HS Aspirin 81 Mg Tab 81 Mg PO DAILY Active Ordered Medications Last 72 hours Impressions Chest X-Ray 08/07/16 7805 Signed Impressions: Service Date/Time: Sunday, August 07, 2016 21:54 - CONCLUSION: No acute disease. Daron Coulter MD Family History No hx of renal disorders Social History daily smoker no ETOH he is full code functionally independent he is unemployed (Jacqui Nguyen) Physical Exam Vital Signs Vital Signs Date Time Temp Pulse Resp B/P Pulse Ox O2 Delivery O2 Flow Rate FiO2 08/09/16 11:22 94 21 08/09/16 09:58 156/92 08/09/16 08:37 Room Air 08/09/16 08:37 66 08/09/16 08:00 97.3 63 20 177/100 92 08/09/16 05:08 98.1 59 08/09/16 00:00 97.0 63 20 131/69 94 08/08/16 20:00 Room Air 08/08/16 20:00 62 08/08/16 20:00 97.7 63 20 130/81 94 08/08/16 19:26 66 08/08/16 16:10 97.2 66 20 128/76 98 08/08/16 15:40 95 08/08/16 15:00 Room Air 4 21 08/08/16 15:00 62 26 139/76 98 Room Air 21 08/08/16 14:00 64 25 132/80 96 Room Air 21 08/08/16 13:00 70 16 126/68 95 Room Air 21 08/08/16 12:00 59 18 129/58 94 Room Air 21 Physical Exam GENERAL: Morbidly obese male in no apparent distress. SKIN: Blisters noted on the LE bilaterally HEENT: Atraumatic. Normocephalic. No temporal or scalp tenderness. No scleral icterus. Airway patent. NECK: Trachea midline, supple, nontender. CARDIO: Regular. RESP: CTA bilaterally. No wheezes, rales, or rhonchi. ABD: +BS, obese, soft, non-tender, nondistended. EXT: Extremities without clubbing, cyanosis, trace edema. NEURO: Awake and alert. Motor function normal. Normal speech. Laboratory Laboratory Tests Test 08/08/16 08/09/16 11:30 05:09 Total Creatine Kinase 278 Troponin I 0.13 White Blood Count 7.3 Red Blood Count 3.47 Hemoglobin 10.4 Hematocrit 32.2 Mean Corpuscular Volume 92.7 Mean Corpuscular Hemoglobin 30.1 Mean Corpuscular Hemoglobin 32.4 Concent Red Cell Distribution Width 16.1 Platelet Count 126 Mean Platelet Volume 9.9 Neutrophils (%) (Auto) 61.7 Lymphocytes (%) (Auto) 19.6 Monocytes (%) (Auto) 13.4 Eosinophils (%) (Auto) 4.6 Basophils (%) (Auto) 0.7 Neutrophils # (Auto) 4.5 Lymphocytes # (Auto) 1.4 Monocytes # (Auto) 1.0 Eosinophils # (Auto) 0.3 Basophils # (Auto) 0.1 CBC Comment DIFF FINAL Differential Comment Sodium Level 139 Potassium Level 4.4 Chloride Level 108 Carbon Dioxide Level 23.8 Anion Gap 7 Blood Urea Nitrogen 48 Creatinine 3.39 Estimat Glomerular Filtration 23 Rate Random Glucose 93 Calcium Level 7.9 Triglycerides Level 91 Cholesterol Level 133 LDL Cholesterol 76 HDL Cholesterol 38.5 Cholesterol/HDL Ratio 3.45 (Jacqui Nguyen) Result Diagram: 08/09/16 0509 08/09/16 0509 Imaging Last 72 hours Impressions Chest X-Ray 08/07/16 9904 Signed Impressions: Service Date/Time: Sunday, August 07, 2016 21:54 - CONCLUSION: No acute disease. Daron Coulter MD (Jacqui Nguyen) Assessment and Plan Problem List: (1) Acute renal failure Plan: Basseline CKD 3 as of March 2016 he may have developed ADDY due to Bactrim use, which can inhibit distal tubular K and creatinine secretion, resulting in elevated levels potassium is normal, no evidence of acid-base disorders obtain renal US to rule out obstructive uropathy follow urine output, no zuniga, I have asked the nurses for post void bladder scanning TID obtain UA for analysis of protein, infection he is on IVF, continue cautiously for the time being avoid nephrotoxins monitor electrolytes, replace as needed renal panel in am (2) HTN (hypertension) Plan: continue oral meds, monitor effect (3) CHF (congestive heart failure) Plan: repeat echo ordered, last fall EF 55-60%, diastolic dysfunction (Jacqui Nguyen) Assessment and Plan patient was seen and examined. He was on Bactrim which could have contributed to increase in creatinine. He has underlying stage III CKD. Monitor. Taper off fluids. Renal US revealed no hydronephrosis. (Ramesh Monzon MD) Jacqui Nguyen Aug 09, 2016 11:40 Ramesh Monzon MD Aug 10, 2016 15:45
--- NOTE | 2016-08-09 13:06 | EC ---
Study Study Date:08/09/2016 STUDY CONCLUSIONS SUMMARY - Left ventricle: The cavity size was normal. Wall thickness was increased increased in a pattern of mild to moderate LVH. Systolic function was normal. The estimated ejection fraction was in the range of 55% to 60%. Wall motion was normal; there were no regional wall motion abnormalities. Doppler parameters are consistent with abnormal left ventricular relaxation (grade 1 diastolic dysfunction). - Aortic valve: Trace regurgitation. Valve area: 2.76cm^2(VTI). Valve area: 2.32cm^2 (Vmax). - Mitral valve: Mild regurgitation. If LV function is below 40, please consider prescribing an ACEI or ARB or document rationale for non-use. PROCEDURE DATA STUDY STATUS: Elective. Procedure: Transthoracic echocardiography. Image quality was good. Scanning was performed from the parasternal, apical, and subcostal acoustic windows. Study completion: The patient tolerated the procedure well. Transthoracic echocardiography. M-mode, complete 2D, complete spectral Doppler, and color Doppler. Height: Height: 76in. Weight: Weight: 384.2lb. Body mass index: BMI: 46.9kg/m^2. Body surface area: BSA: 2.93m^2. Patient status: Inpatient. CARDIAC ANATOMY LEFT VENTRICLE: The cavity size was normal. Wall thickness was increased increased in a pattern of mild to moderate LVH. Systolic function was normal. The estimated ejection fraction was in the range of 55% to 60%. Wall motion was normal; there were no regional wall motion abnormalities. Doppler parameters are consistent with abnormal left ventricular relaxation (grade 1 diastolic dysfunction). AORTIC VALVE: Trileaflet; normal thickness leaflets. Doppler: Transvalvular velocity was within the normal range. There was no stenosis. Trace regurgitation. Valve area: 2.76cm^2(VTI). Indexed valve area: 0.94cm^2/m^2 (VTI). Valve area: 2.32cm^2 (Vmax). Indexed valve area: 0.79cm^2/m^2 (Vmax). Mean gradient: 3mm Hg (S). AORTA: Aortic root: The aortic root was normal in size. MITRAL VALVE: Structurally normal valve. Doppler: Transvalvular velocity was within the normal range. There was no evidence for stenosis. Mild regurgitation. LEFT ATRIUM: The atrium was normal in size. RIGHT VENTRICLE: The cavity size was normal. Wall thickness was normal. PULMONIC VALVE: Doppler: Transvalvular velocity was within the normal range. There was no evidence for stenosis. No regurgitation. TRICUSPID VALVE: Structurally normal valve. Doppler: Transvalvular velocity was within the normal range. No regurgitation. PULMONARY ARTERY: The main pulmonary artery was normal-sized. Systolic pressure was within the normal range. RIGHT ATRIUM: The atrium was normal in size. PERICARDIUM: There was no pericardial effusion. SYSTEMIC VEINS: Inferior vena cava: The vessel was normal in size. Patient weight: 384.2lb _Ejection fraction:_ 65-75% _Fractional shortening:_ 32% up to 5Kg 5-11.5Kg 11.6-22.9Kg 23-45Kg 45-57Kg Aortic Root 7-13 <17 13-22 17-27 17-27 LA diam 6-13 <23 24-38 33-47 37-40 RVID 10-17 7-15 7-15 7-18 8-17 LVIDd 12-22 <32 24-38 33-47 37-40 LVPW 2-4 3-6 5-7 6-8 7-8 IVS 2-4 3-6 5-7 6-8 7-8 BASIC MEASUREMENTS ADULT NORMAL Left ventricle LV internal dimension, ED, chordal *57.5 mm 43-52 level, PLAX LV internal dimension, ES, chordal 36.2 mm 23-38 level, PLAX Fractional shortening, chordal level, 37 % >29 PLAX LV posterior wall thickness, ED 12.9 mm IVS/LVPW ratio, ED 0.99 <1.3 Ventricular septum Septal thickness, ED 12.8 mm Aortic valve Leaflet separation 26 mm 15-26 Aorta Root diameter, ED 34 mm Left atrium Anterior-posterior dimension 37 mm Anterior-posterior dimension index 1.26 cm/m^2 <2.2 BASIC MEASUREMENTS ADULT NORMAL Aortic valve Leaflet separation 26 mm 15-26 DOPPLER MEASUREMENTS ADULT NORMAL Aortic valve Peak velocity, S 125 cm/s Mean velocity, S 80.4 cm/s VTI, S 19.7 cm Mean gradient, S 3 mm Hg Valve area, VTI 2.76 cm^2 Valve area index, VTI 0.94 cm^2/m^2 Valve area, Vmax 2.32 cm^2 Valve area index, Vmax 0.79 cm^2/m^2 Regurgitant velocity, ED 202 cm/s Regurgitant deceleration 1670 cm/s^2 Regurgitant pressure half-time 355 ms Regurgitant gradient, ED 16 mm Hg Mitral valve Peak E-wave velocity 55.5 cm/s Peak A-wave velocity 64.2 cm/s Peak E/A ratio 0.9 Tricuspid valve Regurgitant peak velocity 217 cm/s Peak RV-RA gradient, S 19 mm Hg Maximal regurgitant velocity 217 cm/s Pulmonic valve Peak velocity, S 71.4 cm/s LEGEND: Mean values are shown as u=mean value. Asterisk (*) barroso values outside specified normal range. Prepared and signed by Ryan Ybarra [id number]
--- NOTE | 2016-08-09 13:26 | RADRPT ---
EXAM DATE/TIME: 08/09/2016 10:39 [place] COMPARISON: No previous studies available for comparison. INDICATIONS : Abnormal labs. MEDICAL HISTORY : Hypertension. Gastroesophageal reflux disease. Hypothyroidism. Congestive heart failure. Dyspnea. C hronic kidney disease. SURGICAL HISTORY : Corneal transplant. Left knee arthroscopy. ENCOUNTER: Subsequent ACUITY: 1 day PAIN SCORE: 2/10 LOCATION: Bilateral flank MEASUREMENTS: RIGHT KIDNEY: 10.2 x 5.4 x 6.3 cm LEFT KIDNEY: 11.8 x 6.4 x 6.8 cm FINDINGS: RIGHT KIDNEY: Renal cortex is normal in thickness and echotexture. No hydronephrosis, stone, or solid mass. There is a 2.5 x 2.3 x 2.1 cm simple appearing cyst in the upper pole. LEFT KIDNEY: Visualization was suboptimal secondary to the patient's body habitus and overlying bowel gas. Renal c ortex is normal in thickness and echotexture. No hydronephrosis, stone, or solid mass. There is a 4 .7 x 4.6 x 4.7 cm simple appearing cyst in the central kidney. BLADDER: Within normal limits given the degree of distension. CONCLUSION: 1. No evidence of hydronephrosis. 2. Simple appearing cysts in both kidneys. Mario Bowser MD on August 09, 2016 at 13:23 Board Certified Radiologist. This report was verified electronically.
[2016-08-09] MEDS: ATORVASTATIN 40 MG TAB PO SCH (21:54)
[2016-08-10] VITALS: BP 144/75; PULSE 66; RESP 20; TEMP 97.9; O2SAT 98
[2016-08-10] MEDS: SODIUM CHLOR 0.9% 1000 ML INJ 1,000 ML IV SCH (03:48)
[2016-08-10 04:00] VITALS: BP 145/78; PULSE 69; RESP 20; TEMP 97.2; O2SAT 99
[2016-08-10] MEDS: LEVOTHYROXINE SODIUM 200 MCG TAB PO SCH (05:08)
[2016-08-10 07:04] LABS: BICARBONATE 23.3 MEQ/L (21.0-32.0)
[2016-08-10 08:21] VITALS: BP 175/94; PULSE 66; RESP 21; TEMP 97.7; O2SAT 96
[2016-08-10] MEDS: CARVEDILOL 3.125 MG TAB PO SCH (09:49)
[2016-08-10] MEDS: PANTOPRAZOLE SOD 40 MG DELAYED RELEASE TAB PO SCH (09:50)
[2016-08-10] MEDS: ASPIRIN EC 325 MG TABEC PO SCH (09:50)
[2016-08-10] MEDS: SODIUM CHLORIDE 0.9% FLUSH 5 ML FLUSH FLUSH SCH (09:51)
--- NOTE | 2016-08-10 10:08 | HHI.PR ---
Subjective Remarks feels much better. Objective Vitals heart reg lung cta abd s'nt ext no edema Vital Signs Date Time Temp Pulse Resp B/P Pulse Ox O2 Delivery O2 Flow Rate FiO2 08/10/16 08:21 97.7 66 21 175/94 96 08/10/16 04:00 97.2 69 20 145/78 99 08/10/16 00:00 97.9 66 20 144/75 98 08/09/16 20:45 Room Air 08/09/16 20:11 56 08/09/16 20:00 98.1 64 20 158/89 97 08/09/16 16:00 96.5 61 20 160/100 95 08/09/16 12:00 96.4 63 20 171/84 94 08/09/16 11:22 94 21 08/09/16 08/09/16 08/10/16 15:00 23:00 07:00 Intake Total 720 ml 2235 ml 1000 ml Output Total 550 ml 575 ml Balance 170 ml 2235 ml 425 ml Intake Oral 720 ml 240 ml 360 ml IV Total 1995 ml 640 ml Output Urine Total 550 ml 575 ml Bladder Scan Volume Amount 114 ml # Voids 2 2 2 # Bowel Movements 1 1 0 Result Diagram: 08/09/16 0509 08/10/16 0600 Imaging Last Impressions Chest X-Ray 08/07/16 7206 Signed Impressions: Service Date/Time: Sunday, August 07, 2016 21:54 - CONCLUSION: No acute disease. Daron Coulter MD A/P Problem List: (1) Chest pain Status: Acute Plan: - Pt admitted with dizziness, chest pain/pressure, exertional SOB, diaphoresis and nausea - Pt also with significant anxiety which may be playing a role in his symptoms. - He had some relief of his chest pain and pressure with Nitro and Morphine in the ER - Pt was noted to have an elevated but flat troponin of 0.15 and 0.15 but pt also noted to have an elevated creatinine about previous baseline labs. - Pt has significant cardiac risk factors including, HTN, hyperlipidemia, morbid obesity, tobacco use - Pt had previous workup outpt with Lexiscan in 05/2016 which noted to have mild inferior and inferoseptal ischemia but difficult to interpret based on body habitus. - He last 2D echo in 05/2016 as noted above. Repeat echo here no change. - seen by cardiology.. c would be problematic given his renal function. no intervention planned. (2) Acute on chronic renal insufficiency Status: Acute Plan: - Pt with worsening lorie. cr 3.3 ...now today improving back to 2 - Outpt labs from 03/2016 with Cr 1.84 - Hold Chlorthalidone -He was using bactrim on 2 separate occasions before admission for "cellulitis" rle....So his lorie could be related to the bactrim. Also we are aware of his variant collecting system anatomy on left and hx bph. discussed with Renal. u/s kidney noted. no obstruction . u/a. urine na, eos . all still pending. discussed with RN also bp needs improvement. to bring in accurate home list so we can give him recommendation for going home. will d/c once ok with Renal. (3) Dyspnea on exertion Status: Acute Plan: - See above. (4) Dizziness Status: Acute Plan: - See above. (5) Benign hypertension Status: Chronic Plan: - Pt with longstanding hx of HTN - Outpt pt is on Coreg 25mg po BID, Chlorthalidone 25mg po daily and Norvasc 10mg po daily - Resume BB at decreased dose for now as BP has been low but will likely need to increase dose - Hold Chlorthalidone - Resume Norvasc - Vasotec PRN - Clonidine PRN (6) Hyperlipidemia Status: Chronic Plan: - Resume home meds (7) Obesity Status: Chronic (8) Hypothyroidism Status: Chronic Plan: - Resume home meds (9) DARINEL (obstructive sleep apnea) Status: Chronic Plan: - Pt has not seen a small business representative is quite some time and does not have a CPAP - pt will need outpt followup with Pulmonary for sleep study and CPAP (10) Diastolic CHF Status: Chronic Plan: - Pt with grade 2 diastolic CHF Frank Moon MD Aug 10, 2016 10:08
--- NOTE | 2016-08-10 11:45 | HHI.NPPN ---
Subjective Renal Failure: Acute Interval History Sitting up in bed. No overnight events or concerns. Renal function is better. ( Jacqui Nguyen) Objective Data Data 08/09/16 08/10/16 18:59 06:59 Intake Total 2075 ml 1880 ml Output Total 550 ml 575 ml Balance 1525 ml 1305 ml Intake Oral 720 ml 600 ml IV Total 1355 ml 1280 ml Output Urine Total 550 ml 575 ml Bladder Scan Volume Amount 114 ml # Voids 2 4 # Bowel Movements 1 1 Vital Signs Date Time Temp Pulse Resp B/P Pulse Ox O2 Delivery O2 Flow Rate FiO2 08/10/16 08:21 97.7 66 21 175/94 96 08/10/16 04:00 97.2 69 20 145/78 99 08/10/16 00:00 97.9 66 20 144/75 98 08/09/16 20:45 Room Air 08/09/16 20:11 56 08/09/16 20:00 98.1 64 20 158/89 97 08/09/16 16:00 96.5 61 20 160/100 95 08/09/16 12:00 96.4 63 20 171/84 94 (Jacqui Nguyen) -: 08/09/16 0509 08/10/16 0600 Imaging Last 72 hours Impressions Renal Ultrasound 08/09/16 0000 Signed Impressions: Service Date/Time: August 10:39 - CONCLUSION: 1. No evidence of hydronephrosis. 2. Simple appearing cysts in both kidneys. Mario Bowser MD Chest X-Ray 08/07/16 2326 Signed Impressions: Service Date/Time: Sunday, August 07, 2016 21:54 - CONCLUSION: No acute disease. Daron Coulter MD (Jacqui Nguyen) Physical Exam General Appearance: Well Developed, Well Nourished, Comfortable (Jacqui Nguyen) Eyes Eye Exam: Pupils Equal (Jacqui Nguyen) Throat Throat Exam: Oral Mucosa [place] & Moist (Jacqui Nguyen) Neck Neck Exam: Neck Supple (Jacqui Nguyen) Pulmonary Resp Exam: Clear Bilaterally, Breath Sounds Equal, No Distress (Jacqui Nguyen) Cardiology CV Exam: Regular, Normal Sinus Rhythm, Good Perfusion (Jacqui Nguyen) Gastrointestinal/Abdomen GI Exam: Soft, Non-Tender, Bowel Sounds Present (Jacqui Nguyen) Musculoskeletal MS Exam: Joints Intact, Normal Tone (Jacqui Nguyen) Integumentary Skin Exam: Clear, Warm, Dry, Intact (Jacqui Nguyen) Extremeties Extremities Exam: No Edema, Pedal Pulses Palpable (Jacqui Nguyen) Neurologic Neuro Exam: Alert, Awake, Oriented, Speech Clear, Moving All Extremities ( Jacqui Nguyen) Psychiatric Psych Exam: Appropriate Responses (Jacqui Nguyen) Assessment/Plan Discussed Condition With: Patient Assessment Summary: ADDY/Acute Renal Failure, Hypertension Problem List: (1) Acute renal failure Plan: Baseline creatinine 1.84, GFR 32 consistent with CKD 3 history as of March 2016 may have underlying nephrosclerosis from hypertension renal function has improved overnight ADDY likely due to Bactrim use, which can inhibit distal tubular K and creatinine secretion, resulting in elevated levels of both potassium is normal, no evidence of acid-base disorders Renal US: no obstructive etiology; bilateral simple cysts noted non oliguric, voiding without difficulty, post void bladder scans 114 ml still awaiting UA for analysis of blood, protein, the nurse is currently collecting specimen on IVF but tolerating oral, will discontinue order avoid nephrotoxins monitor electrolytes, replace as needed renal panel in am (2) HTN (hypertension) Plan: BP acceptable continue oral medications (3) CHF (congestive heart failure) Plan: Grade I diastolic dysfunction, EF 55-60% (Jacqui Nguyen) Plan patient was seen and examined. Renal function has improved. He has baseline stage III CKD. He was advised to avoid Bactrim in the future. Also discussed dietary potassium restriction. He can be discharged from renal standpoint. We will follow up in CKD clinic. (Ramesh Monzon MD) Jacqui Nguyen Aug 10, 2016 11:44 Ramesh Monzon MD Aug 10, 2016 15:54
[2016-08-10 12:15] VITALS: BP 156/81; PULSE 64; RESP 20; TEMP 97.5; O2SAT 97
[2016-08-10 12:28] LABS: BLOOD, URINE TRACE (NEG); COMMENT (UR) CULT NOT INDICATED; CULTURE IF INDICATED CULT NOT INDICATED; GLUCOSE,URINE NEG (NEG); HYALINE CAST, URINE 1 /lpf (RARE); KETONE, URINE NEG (NEG); NITRITE,URINE NEG (NEG); PH, URINE 5.5 (5.0-8.5); URINE COLOR YELLOW (YELLW/STRAW)
[2016-08-10] MEDS ORDERED: GUAN2TAB PO (14:58)
[2016-08-10] MEDS ORDERED: AMLO10 PO (14:58)
[2016-08-10] MEDS ORDERED: CARV25TA PO (15:04)
--- NOTE | 2016-08-10 15:05 | HHI.DCPOC ---
Discharge Care Plan Diagnosis: (1) Acute on chronic renal insufficiency (2) HTN (hypertension) (3) DARINEL (obstructive sleep apnea) (4) LVH (left ventricular hypertrophy) (5) Diastolic CHF Goals to Promote Your Health * To prevent worsening of your condition and complications * To maintain your health at the optimal level Directions to Meet Your Goals Take your medications as prescribed Follow your dietary instruction Follow activity as directed Keep your appointments as scheduled Take your immunizations and boosters as scheduled If your symptoms worsen call your PCP, if no PCP go to Urgent Care Center or Emergency Room Smoking is Dangerous to Your Health. Avoid second hand smoke Call the 24-hour hour crisis hotline for domestic abuse at Frank Moon MD Aug 10, 2016 15:05
--- NOTE | 2016-08-14 10:00 | RSPPFT ---
DATE OF PROCEDURE: 08/09/16 COMMENTS: Spirometry shows FVC of 2.6 at 44% of predicted, FEV1 of 1.9 at 41%, FEV1/FVC ratio is normal. Flow is decreased at FEF 25-75. No response after bronchodilator treatment. Flow volume loop indicates an obstructive pattern. IMPRESSION: 1. Moderately severe obstructive lung disease. 2. Underlying restrictive disease is not ruled out from this study. 3. Patient will need a full pulmonary function study for further evaluation.
== END 2016-08-10 16:24 | disposition home or self-care (01) | DRG 683 ==
LOC: NEPC 23:24 → INTOOBSV 08-08 00:55 → NEDA 08-08 00:55 → NEDH 08-08 04:55 → OBSVTOIN 08-08 11:19 → N04B 08-08 16:06
PROVIDERS: ADMIT Hospitalist; ATTEND Hospitalist
DX: N17.9 Acute kidney failure, unspecified (principal); Z68.42 Body mass index [BMI] 45.0-49.9, adult; I50.30 Unspecified diastolic (congestive) heart failure; T37.0X5A Adverse effect of sulfonamides, initial encounter; I12.9 Hypertensive chronic kidney disease with stage 1 through stage 4 chronic kidney disease, or unspecified chronic kidney disease; N18.3 Chronic kidney disease, stage 3 (moderate); E66.01 Morbid (severe) obesity due to excess calories; G47.33 Obstructive sleep apnea (adult) (pediatric); E78.5 Hyperlipidemia, unspecified; F17.210 Nicotine dependence, cigarettes, uncomplicated; K21.9 Gastro-esophageal reflux disease without esophagitis; E03.9 Hypothyroidism, unspecified; Z79.82 Long term (current) use of aspirin; R42 Dizziness and giddiness; R07.9 Chest pain, unspecified; Z91.19 Patient's noncompliance with other medical treatment and regimen
CPT/HCPCS: 71010; 76775; 80048; 80053; 80061; 81001; 82550; 82552; 83690; 83735; 83880; 84300; 84484; 85025; 85610; 85730; 87205; 93005; 93306; 94060; 96374; 96375; J2270; J2405; J2550; J7030

== ENCOUNTER 2017-11-22 13:28 | Emergency (ER) | payer SELFPAY ==
[~2017-11-22] VITALS: Ht 193 cm; Wt 160.0 kg
[~2017-11-22 13:28] MED LIST changes: -1-ME1LIQ PO; -ALBU8I INH; +AMLO10 PO; +ASPI-516 CHEW; -ATOR40TA PO; -BACT800T5 PO; -CHLO25TA24 PO; -CO Q100C9 PO; +LEVO200T4 PO; -LEVO50IN PO; +LIPI40TA PO; -NITR0.4S SL; -SM A81CH PO; +VENTAER INH
[2017-11-22 14:29] VITALS: BP 150/97; PULSE 64; RESP 17; TEMP 97.7; O2SAT 97
[2017-11-22] MEDS ORDERED: FAMOTIDINE 20 MG TAB PO ONE (17:15)
[2017-11-22] MEDS ORDERED: DIPH25CA PO (17:15)
[2017-11-22] MEDS ORDERED: predniSONE 50 MG TAB PO ONE (17:15)
[2017-11-22] MEDS ORDERED: diphenhydrAMINE HCL 50 MG CAP PO ONE (17:15)
[2017-11-22] MEDS ORDERED: PRED20 PO (17:15)
--- NOTE | 2017-11-22 17:16 | PD ---
HPI Chief Complaint: Skin Problem Time Seen by Provider: 17:01 Travel History International Travel<30 days: No Contact w/Intl Traveler<30days: No Traveled to known affect area: No History of Present Illness HPI The patient is 57 years old. He complains of rash about the extremities. Erythematous lesions noted. They are itchy. Duration is been about 1-1/2 days. He is unaware of potential allergen exposure however notes a similar episode occurred about a year ago. No sensation of throat fullness or difficulty breathing. No gbig-[id number]-psktmsg medication tried. Timing constant. Severity mild to moderate. PFSH Past Medical History Asthma: No Anxiety: Yes Depression: No Heart Rhythm Problems: No Cancer: No Cardiovascular Problems: Yes High Cholesterol: No Chest Pain: Yes Congestive Heart Failure: Yes COPD: No Diabetes: No Endocrine: Yes Genitourinary: Yes (patient states this visit) Hypertension: Yes Immune Disorder: Yes Musculoskeletal: No Neurologic: No Psychiatric: Yes Reproductive: No Respiratory: No Thyroid Disease: Yes (HYPO) Past Surgical History Other Surgery: Yes ([employer]) Social History Alcohol Use: Yes (OCC) Tobacco Use: No Substance Use: No Allergies-Medications (Allergen,Severity, Reaction): Coded Allergies: topiramate (Unverified Allergy, Intermediate, Hives, 02/13/17) Uncoded Allergies: phentermine (Allergy, Intermediate, Hives, 03/08/15) Reported Meds & Prescriptions Reported Meds & Active Scripts Active Prednisone 20 Mg Tab 40 Mg PO DAILY 4 Days Take 40 mg (2 tablets) daily for 5 days Diphenhydramine (Diphenhydramine HCl) 25 Mg Cap 50 Mg PO Q8HR PRN Carvedilol 25 Mg Tab 12.5 Mg PO BID Reported Norvasc (Amlodipine Besylate) 10 Mg Tab 10 Mg PO DAILY Guanfacine (Guanfacine HCl) 2 Mg Tab 2 Mg PO HS Do not crush, chew or divide tablet. Take with a meal. Ventolin Hfa 18 GM Inh (Albuterol Sulfate) 90 Mcg/Act Aer 1 Puff INH Q4H PRN Lipitor (Atorvastatin Calcium) 40 Mg Tab 40 Mg PO HS Aspirin 81 Mg Chew 81 Mg CHEW DAILY Levothyroxine (Levothyroxine Sodium) 200 Mcg Tab 200 Mcg PO DAILY Ranitidine (Ranitidine HCl) 150 Mg Tab 150 Mg PO DAILY Review of Systems Except as stated in HPI: all other systems reviewed are Neg General / Constitutional: No: Fever Eyes: No: Photophobia Physical Exam Narrative GENERAL: 57-year-old male well-nourished well-developed no acute distress Vital Signs Date Time Temp Pulse Resp B/P (MAP) Pulse Ox O2 Delivery O2 Flow Rate FiO2 11/22/17 14:29 97.7 64 17 150/97 (114) 97 SKIN: Warm and dry. Urticarial lesions about the arms and legs. No petechiae. HEAD: Atraumatic. Normocephalic. EYES: Pupils equal and round. No scleral icterus. No injection or drainage. ENT: No nasal bleeding or discharge. Mucous membranes pink and moist. Posterior oropharynx widely patent. NECK: Trachea midline. No JVD. CARDIOVASCULAR: Regular rate and rhythm. RESPIRATORY: No accessory muscle use. Clear to auscultation. Breath sounds equal bilaterally. GASTROINTESTINAL: Abdomen soft, non-tender, nondistended. Hepatic and splenic margins not palpable. MUSCULOSKELETAL: Extremities without clubbing, cyanosis, or edema. No obvious deformities. NEUROLOGICAL: Awake and alert. No obvious cranial nerve deficits. Motor grossly within normal limits. Five out of 5 muscle strength in the arms and legs. Normal speech. PSYCHIATRIC: Appropriate mood and affect; insight and judgment normal. Data Data Last Documented VS Vital Signs Date Time Temp Pulse Resp B/P (MAP) Pulse Ox O2 Delivery O2 Flow Rate FiO2 11/22/17 14:29 97.7 64 17 150/97 (114) 97 Orders Orders Prednisone (Deltasone) (11/22/17 17:15) Diphenhydramine (Benadryl) (11/22/17 17:15) Famotidine (Pepcid) (11/22/17 17:15) [facility] Medical Decision Making Medical Screen Exam Complete: Yes Emergency Medical Condition: Yes Medical Record Reviewed: Yes Differential Diagnosis Allergic dermatitis, hives, anaphylaxis Narrative Course Patient has allergic dermatitis of an unknown cause. He has received Benadryl Pepcid and prednisone here. Scripts as below. Presentation is quite mild overall and I anticipate complete resolution following administration medication here. Diagnosis Primary Impression: Allergic dermatitis Referrals: Primary Care Physician call for appointment Med/Other Pt SpecificInfo: Prescription(s) given Scripts Prednisone (Prednisone) 20 Mg Tab 40 MG PO DAILY for 4 Days, #8 TAB 0 Refills Take 40 mg (2 tablets) daily for 5 days Prov: Austen Baez MD 11/22/17 Diphenhydramine (Diphenhydramine) 25 Mg Cap 50 MG PO Q8HR Y for ALLERGIES, #20 CAP 0 Refills Prov: Austen Baez MD 11/22/17 Disposition: 01 DISCHARGE HOME Condition: Stable Austen Baez MD November 22, 2017 17:16
== END 2017-11-22 18:24 | disposition home or self-care (01) ==
LOC: NEPD 13:28
DX: L23.9 Allergic contact dermatitis, unspecified cause (principal)
CPT/HCPCS: 99283; J7512; Q0163